=== PATIENT | male | born 1940 | race Caucasian/White ===

== ENCOUNTER 2019-12-01 02:08 | Inpatient (IN) | payer MEDICARE, OTHER ==
[2019-12-01] MEDS ORDERED: Norepinephrine 8 MG/0.9% NS 250 ML ONE (02:30)
[2019-12-01] MEDS ORDERED: fentaNYL Citrate/PF 2,000 MCG in Sodium Chloride 0.9% 60 ML IV SCH (02:35)
[2019-12-01] MEDS ORDERED: Ipratropium Bromide 2.5 ml Neb NEB PRN (02:51)
[2019-12-01] MEDS ORDERED: Albuterol Sulfate 2.5 mg/3 ml Neb NEB PRN (02:51)
[2019-12-01] MEDS ORDERED: Ventilator Sedation Protocol 1 EACH FS SCH (03:00)
[2019-12-01] MEDS ORDERED: Propofol 1,000 MG/100 ML VIAL IV PRN (03:03)
[2019-12-01] MEDS ORDERED: Fentanyl BOLUS 250 ML IVPB PRN (03:03)
[2019-12-01] MEDS ORDERED: DISCONTINUE PREVIOUS NARCOTIC PAIN MEDICATIONS AND BENZODIAZEPINES FS SCH (03:03)
[2019-12-01] MEDS ORDERED: Propofol BOLUS 1,000 MG/100 ML VIAL IV PRN (03:03)
[2019-12-01] MEDS ORDERED: Morphine 2 MG/ML SYRINGE SLOW IVP PRN (03:03)
[2019-12-01] MEDS ORDERED: Fentanyl 100 MCG/2 ML VIAL ONE (04:34)
[2019-12-01] MEDS ORDERED: Succinylcholine Chloride 20 MG/ML 10 ml SYRINGE FS ONE (04:36)
[2019-12-01] MEDS: cefTRIAXone\\ROCEPHIN 1 GM in Sodium Chloride 0.9% 100 ML IVPB SCH (05:42)
[2019-12-01] MEDS: methylPREDNISolone Sod Succ 40 MG VIAL IVP SCH ×3 (05:43→23:56)
[2019-12-01] MEDS: Azithromycin 500 MG in Sodium Chloride 0.9% 250 ML 250 ML IVPB SCH (05:43)
[2019-12-01] MEDS: Bacteriostatic Water 30 ML VIAL FS PRN (05:43)
[2019-12-01 06:17] LABS: INR-International Normal Ratio 3.4; Prothrombin Time 33.8 SEC (12.0-14.7)
[2019-12-01] MEDS: Sodium Chloride 0.9% 1,000 ML IV SCH ×2 (06:42→14:30)
[2019-12-01] MEDS ORDERED: Norepinephrine 8 MG/250 ML IVPB SCH (06:45)
[2019-12-01 06:56] LABS: Actual Bicarbonate (HCO3a) 30.5 mEq/L (22-28); CO2 Tension 59.3 mmHg (35.0-45.0); Calcium, Ionized 1.14 mmol/L (1.12-1.30); Carboxyhemoglobin (COHb) 1.5 gm% (0.0-3.0); Hemoglobin (Hb) 13.7 g/dL (14.0-18.0); O2 Tension (PaO2) 68.1 mmHg (> 70.0); Potassium - ABG Lab 3.72 mmol/L (3.70-5.30); pH, Arterial 7.33 (7.35-7.45)
[2019-12-01 07:15] LABS: ALV-art Gradient 71.675 (0-20); Puncture Site LRA
--- NOTE | 2019-12-01 07:33 | HP ---
CHIEF COMPLAINT: Shortness of breath. HISTORY OF PRESENT ILLNESS: Mr. Garcia is a 79-year-old male who is being transferred from [place] emergency room after he presented there with worsening shortness of breath. The patient has past medical history of COPD and DVT on warfarin. As per records, the patient became increasingly short of breath, using accessory muscles, was intubated, and mechanically ventilated. Also patient's blood pressure dropped and was placed on Levophed. On arrival to our emergency room, blood pressure was 160, systolic, Levophed was held then his blood pressure dropped down to less than 90. Currently, the patient was restarted again on Levophed. ED physician is placing central venous catheter. No further history can be obtained at this time since the patient is currently intubated and mechanically ventilated. PAST MEDICAL HISTORY: 1. Chronic obstructive pulmonary disease. 2. DVT. 3. Glucose intolerance. PAST SURGICAL HISTORY: 1. Back surgery. 2. Appendectomy. 3. Cholecystectomy. 4. Elbow surgery. 5. Hernia surgery. 6. IVC filter. ALLERGIES: NO KNOWN ALLERGIES. SOCIAL HISTORY: Unknown. The patient is currently intubated and sedated. HOME MEDICATIONS: Please see home medication reconciliation form for updated medications. REVIEW OF SYSTEMS: Unable to obtain. The patient is intubated, sedated, and mechanically ventilated. PHYSICAL EXAMINATION: GENERAL: The patient is intubated, sedated, mechanically ventilated. VITAL SIGNS: Blood pressure currently on Levophed is 120/87, pulse is 101, respiratory rate is 20, and pulse oximetry is 98%. HEAD AND NECK: Normocephalic and atraumatic. Intubated. Neck is supple. CHEST: Decreased air entry bilaterally with scattered wheeze. HEART: S1 and S2, regular. ABDOMEN: Soft. Bowel sounds present. NEURO: The patient is intubated, sedated, unable to assess. EXTREMITIES: No clubbing or cyanosis. GENITOURINARY: No flank tenderness. No suprapubic tenderness. MUSCULOSKELETAL: No apparent joint deformity. LABORATORY DATA: Sodium 144, potassium 4.6, BUN is 12, creatinine is 1, and glucose 122. WBC is 5.5, hemoglobin 14, and platelets 101. INR is 2.9. Chest x-ray reported no acute finding. ASSESSMENT: 1. Acute respiratory failure. 2. Chronic obstructive pulmonary disease with acute exacerbation. 3. History of deep venous thrombosis. 4. Anticoagulated on warfarin. 5. Hypotension. PLAN: 1. Admit to ICU. 2. Keep n.p.o. 3. Continue full ventilator support. 4. Consult Pulmonary for critical care management. 5. Continue bronchodilators scheduled and as needed. 6. IV steroids. 7. Empiric IV antibiotics. 8. GI prophylaxis. 9. DVT prophylaxis. The patient is on home warfarin, will get PT and INR. 10. Reconcile home medications. 11. Expected length of stay is two midnights or more. Job ID: [id number]
[2019-12-01] MEDS: Famotidine/PF 20 mg/2ml Vial SLOW IVP SCH ×2 (07:45→20:23)
--- NOTE | 2019-12-01 09:08 | RAD ---
PORTABLE CHEST: Date: 12/01/2019 COMPARISON: Exam obtained earlier at 0229 hours. FINDINGS/IMPRESSION: ET tube remains in place. The lung bases are not imaged on this current study. Visualized lung dillon show no focal infiltrate. No evidence of interval change. POS: [facility]
--- NOTE | 2019-12-01 09:27 | RAD ---
AP CHEST: Date: 12/01/2019 HISTORY: Intubation. FINDINGS: ET tube is normally positioned. The lungs appear clear of infiltrate. No evidence of vascular congest ion. Heart size normal. There are chronic lung parenchymal changes. IMPRESSION: No acute lung process. POS: [facility]
[2019-12-01] MEDS: Lorazepam 2 MG/ML VIAL SLOW IVP PRN (14:18)
[2019-12-01] MEDS ORDERED: guaiFENesin ER 600 MG TAB PO SCH (14:45)
[2019-12-01] MEDS ORDERED: Furosemide 20 MG/2 ML VIAL SLOW IVP SCH (14:45)
--- NOTE | 2019-12-01 15:30 | CON ---
DATE OF CONSULTATION: 12/01/2019 SERVICE: Pulmonary Medicine. REASON FOR CONSULTATION: COPD exacerbation. HISTORY OF PRESENT ILLNESS: The patient is a 79-year-old white male with past medical history significant for oxygen-dependent COPD. He is in his usual state of health until about 3 days prior to admission. He went to the emergency department and got a course of doxycycline and steroids. That being said, over the next 2 days, shortness of breath continued to get worse. He presented back to the emergency department at an outside hospital. He had such severe shortness of breath that he was electively intubated and transitioned here. On the mechanical ventilator, he has horrendous obstructive airflow limitation. He is awake and is cooperative. He is following some simple commands, though he is requiring some sedation to maintain comfort. PAST MEDICAL HISTORY: 1. Chronic hypoxic respiratory failure. 2. COPD. 3. History of DVT. 4. Glucose intolerance without current diabetes. PAST SURGICAL HISTORY: 1. Appendectomy. 2. Cholecystectomy. 3. Elbow surgery. 4. Herniorrhaphy. 5. IVC filter placement. 6. Back surgery. FAMILY HISTORY: Noncontributory. SOCIAL HISTORY: He has a greater than 01-[id number] history of smoking, but quit over 20 years ago. He had a 1-year relapse in 2009 after his first . His significant other denies significant alcohol or illicit drug use. 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 ALLERGIES: NO KNOWN DRUG ALLERGIES. MEDICATIONS: Lists of his inpatient medications were reviewed. Multiple updates were made at this time. REVIEW OF SYSTEMS: This cannot be obtained as the patient is currently intubated today. PHYSICAL EXAMINATION: VITAL SIGNS: Afebrile, pulse 102, blood pressure 104/67, respirations 14, saturation 97%, currently on 27% FiO2 delivered via the ventilator with a PEEP of 5. GENERAL: The patient is intubated and sedated. HEENT: Normocephalic and atraumatic. Sclerae white. Conjunctivae pink. Oral mucosa is moist without lesions. LUNGS: Reduced air entry with a prolonged expiratory phase. He is not moving enough air to appreciate adventitious sounds currently. HEART: Normal rate and regular. ABDOMEN: Soft, nontender, nondistended. Bowel sounds are positive. MUSCULOSKELETAL: No cyanosis or clubbing. There is minimal pitting in the bilateral lower extremities. NEUROLOGIC: Grossly nonfocal. LABORATORY DATA: INR 3.4. PH of 7.33, pCO2 of 59, PO2 of 68, corresponding to a saturation 93% while on 30% FiO2 at that time. IMAGING STUDIES: Chest x-ray demonstrates good placement of the endotracheal tube. No acute cardiopulmonary abnormality is otherwise identified. The lungs are significantly hyperinflated. No infiltrates or effusions are appreciated. There is an enteric catheter coursing midline below the level of the diaphragm. ASSESSMENT: 1. Acute on chronic hypoxic and hypercapnic respiratory failure. 2. Chronic obstructive pulmonary disease with acute exacerbation. 3. History of deep vein thrombosis, requiring anticoagulation. DISCUSSION AND PLAN: We will continue steroids, nebulized medications, and antibiotics. Because of the severity of his COPD exacerbation, I agree with discontinuation of the doxycycline in favor of the azithromycin and Rocephin combination, even though we do not have clear evidence of an evident infiltrate. Supportive care will be continued, and hopefully over the next 24 to 48 hours, he will have significant improvement in symptoms. I will add some Mucinex to his medications and give him a single dose of Lasix. Critical care time: 30 minutes. Job ID: [id number] MTDD
[2019-12-01] MEDS: guaiFENesin ER 600 MG TAB PO SCH (20:23)
[2019-12-02 05:09] LABS: Prothrombin Time 44.5 SEC (12.0-14.7)
[2019-12-02 05:15] LABS: INR-International Normal Ratio 4.8
[2019-12-02 05:19] LABS: Anion Gap 10 mmol/L (10-20); BUN (Urea Nitrogen) 29 mg/dL (8.4-25.7); Calc. Creatinine Clearance 64 mL/min (70-130); Calcium 8.8 mg/dL (7.8-10.44); Carbon Dioxide 35 mmol/L (23-31); Chloride 101 mmol/L (98-107); Estimated GFR-MDRD 52; Glucose 136 mg/dL (83-110); Potassium 4.2 mmol/L (3.5-5.1); Sodium 142 mmol/L (136-145)
[2019-12-02 05:28] LABS: Band 35 % (5-11); Hemoglobin 12.6 g/dL (14.0-18.0); Lymphocytes 4 % (21-51); MDiff Complete? YES; Mean Corpuscular HGB CONC 32.5 g/dL (32.0-36.0); Mean Corpuscular Hemoglobin 33.3 pg (27.0-31.0); Mean Platelet Volume 10.8 fL (7.4-10.4); Monocytes 4 % (0-10); Neutrophil 57 % (42-75); Platelet Count 97 thou/uL (130-400); Platelet Morphology Comment Appears Decreased; RBC Distribution Width 14.3 % (11.5-14.5); Red Blood Cell (RBC) Count 3.77 mill/uL (4.70-6.10); White Blood Cell (WBC) Count 12.4 thou/uL (4.8-10.8)
[2019-12-02] MEDS: Azithromycin 500 MG in Sodium Chloride 0.9% 250 ML 250 ML IVPB SCH (05:49)
[2019-12-02] MEDS: methylPREDNISolone Sod Succ 40 MG VIAL IVP SCH ×3 (05:49→18:00)
[2019-12-02] MEDS: cefTRIAXone\\ROCEPHIN 1 GM in Sodium Chloride 0.9% 100 ML IVPB SCH (05:49)
--- NOTE | 2019-12-02 07:56 | RAD ---
CHEST 1 VIEW: INDICATION: History of daily CCU examination for intubation. COMPARISON: Prior exam dated 12/01/2019. FINDINGS: The patient remains intubated with gastric catheter placement. Emphysematous change is similar-appea ring. No consolidation, pneumothorax, or pleural effusion is noted. Osseous structures are similar- appearing. IMPRESSION: Stable exam. POS: [facility]
[2019-12-02] MEDS: Famotidine/PF 20 mg/2ml Vial SLOW IVP SCH ×2 (10:22→19:48)
[2019-12-02] MEDS: guaiFENesin ER 600 MG TAB PO SCH ×2 (10:22→19:48)
[2019-12-02] MEDS ORDERED: Sodium Chloride 0.45% 1,000 ML IV SCH (16:45)
--- NOTE | 2019-12-02 17:09 | PRG ---
DATE OF SERVICE: 12/02/2019 SERVICE: Pulmonary Medicine. INTERVAL HISTORY: The patient is doing great from a respiratory standpoint. Breathing comfortably. No complaints. He is on a spontaneous breathing trial and he is doing quite well, but over the course of 1 hour trial, shallow breathing index went from 10 to about 35. He has very significant obstructive airflow limitation. He cannot provide much in the way of interval history because he is currently intubated and sedated. PHYSICAL EXAMINATION: VITAL SIGNS: Afebrile, pulse 91, blood pressure 103/72, respirations 17, saturation 94%, currently on 25% FiO2 with a PEEP of 5. GENERAL: The patient is intubated and sedated. HEENT: Normocephalic and atraumatic. Sclerae white. Conjunctivae pink. Oral mucosa is moist without lesions. LUNGS: Wonderful air entry. There is prolonged expiratory phase with wheezing present. Rhonchi are noted, but no crackles. HEART: Normal rate and regular. ABDOMEN: Soft, nontender, nondistended. Bowel sounds are positive. MUSCULOSKELETAL: No cyanosis or clubbing. There is no pitting in bilateral lower extremities. NEUROLOGIC: Grossly nonfocal. LABORATORY DATA: WBC 12.4, hemoglobin 12.6, platelets 97,000. Neutrophils are 57% on top of 35% bands. INR 4.8 and gently uptrending. PH 7.33, pCO2 of 59, PO2 of 68. Creatinine 1.34. Basic metabolic profile is otherwise unremarkable. IMAGING STUDIES: Chest x-ray demonstrates stable findings without acute changes. ASSESSMENT: 1. Acute on chronic hypoxic and hypercapnic respiratory failure. 2. Chronic obstructive pulmonary disease with acute exacerbation. 3. History of deep vein thrombosis, requiring anticoagulation. DISCUSSION AND PLAN: His INR will be held. We will continue with supportive care including steroids, nebulized medications, and antibiotics. His obstructive lung disease is improving a little bit. I believe that within the next 24 hours, the patient will be stable for extubation. We could likely do it today, but the severity of his obstructive airflow limitation, and deteriorating shallow breathing index on a spontaneous breathing trial suggest that we could wait another day unless he looks absolutely fantastic. CRITICAL CARE TIME: 30 minutes. Job ID: [id number] MTDD
[2019-12-02] MEDS: Lorazepam 2 MG/ML VIAL SLOW IVP PRN (18:06)
[2019-12-02] MEDS ORDERED: Furosemide 40 MG/4 ML VIAL SLOW IVP SCH (19:15)
--- NOTE | 2019-12-02 22:57 | PDOC.HOSPP ---
- Subjective Encounter Date: 12/02/19 Subjective: Intubated. - Objective Vital Signs & Weight: Vital Signs (12 hours) Temp Pulse Resp BP Pulse Ox 12/02/19 22:00 17 12/02/19 21:55 97 108/74 12/02/19 20:00 14 100 12/02/19 19:00 98.3 F 12/02/19 18:34 116 H 96/65 12/02/19 18:00 22 H 12/02/19 16:00 98.8 F 12 12/02/19 15:06 91 17 93 L 12/02/19 15:04 98 103/72 12/02/19 14:00 8 L 12/02/19 12:00 98.9 F 15 12/02/19 11:15 89 118/76 Weight Admit Weight 211 lb 6.773 oz Weight 215 lb 0.341 oz Most Recent Monitor Data Heart Rate from ECG 97 NIBP 106/72 NIBP BP-Mean 83 Respiration from ECG 17 SpO2 98 I&O: 12/01/19 12/02/19 12/03/19 06:59 06:59 06:59 Intake Total 27.4 1012.5 732.9 Output Total 908 951 4771 Balance -797.6 247.5 -554.1 Result Diagrams: 12/02/19 04:40 12/02/19 04:40 Hospitalist ROS - Medication Medications: Active Medications Generic Name Dose Route Start Last Admin Trade Name Freq PRN Reason Stop Dose Admin Albuterol/Ipratropium 3 ml 12/01/19 02:51 12/02/19 15:06 Duoneb NEB 3 ml Q4H PRN Administration SOB &/or Wheezing Famotidine 20 mg 12/01/19 09:00 12/02/19 19:48 Pepcid SLOW IVP 20 mg BID EDDIE Administration Guaifenesin 600 mg 12/01/19 21:00 12/02/19 19:48 Mucinex PO 600 mg Q12HR EDDIE Administration Fentanyl Citrate 2,000 mcg/ 100 mls @ 0 mls/hr 12/01/19 02:35 12/02/19 03:18 Sodium Chloride IV 12/31/19 02:35 100 mls INF EDDIE Administration Protocol Per Protocol Azithromycin 500 mg/ Sodium 250 mls @ 250 mls/hr 12/01/19 06:30 12/02/19 05: 49 Chloride IVPB 250 mls Q24HR EDDIE Administration Ceftriaxone Sodium 1 gm/ 100 mls @ 200 mls/hr 12/01/19 06:00 12/02/19 05:49 Sodium Chloride IVPB 100 mls Q24HR EDDIE Administration Sodium Chloride 1,000 mls @ 0 mls/hr 12/02/19 16:45 12/02/19 17:58 1/2 Normal Saline IV 1,000 mls .Q0M EDDIE Administration KVO Lorazepam 2 mg 12/01/19 03:03 12/02/19 18:06 Ativan SLOW IVP 12/31/19 03:03 2 mg Q1H PRN Administration Breakthrough agitation Methylprednisolone Sodium Succinate 40 mg 12/01/19 06:00 12/02/19 18:00 Solu-Medrol IVP 40 mg Q6HR EDDIE Administration Morphine Sulfate 2 mg 12/01/19 03:03 12/01/19 20:22 Morphine SLOW IVP 12/31/19 03:03 2 mg Q1H PRN Administration BREAKTHROUGH PAIN/Agitation Propofol 1,000 mg 12/01/19 03:03 12/01/19 11:34 Diprivan IV 12/31/19 03:03 1,000 mg INF PRN Administration TO ACHIEVE GOAL RASS Protocol Sodium Chloride 10 ml 12/01/19 09:00 12/02/19 19:49 Flush - Normal Saline IVF 10 ml Q12HR EDDIE Administration Sterile Water 1 ml 12/01/19 03:08 12/01/19 05:43 Bacteriostatic Water FS 1 ml PRN PRN Administration RECONSTITUTION - Exam General Appearance: NAD, awake alert Heart: RRR, no murmur, no gallops, no rubs, normal peripheral pulses Respiratory: CTAB, no wheezes, no rales, no ronchi, normal chest expansion, no tachypnea, normal percussion Gastrointestinal: soft, non-tender, non-distended, normal bowel sounds, no palpable masses, no hepatomegaly, no splenomegaly, no bruit Extremities: no cyanosis, no clubbing, no edema Skin: normal turgor Musculoskeletal: generalized weakness Hosp A/P (1) Acute respiratory failure with hypercapnia Code(s): J96.02 - ACUTE RESPIRATORY FAILURE WITH HYPERCAPNIA Status: Acute (2) COPD exacerbation Code(s): J44.1 - CHRONIC OBSTRUCTIVE PULMONARY DISEASE W (ACUTE) EXACERBATION Status: Acute (3) Hypotension Status: Acute (4) Supratherapeutic INR Code(s): R79.1 - ABNORMAL COAGULATION PROFILE Status: Acute (5) AXEL (acute kidney injury) Code(s): N17.9 - ACUTE KIDNEY FAILURE, UNSPECIFIED Status: Acute - Plan Followed by Pulm. Still has prolonged expiratory phase. Holding anticoagulation. BP ok.
[2019-12-03] MEDS: methylPREDNISolone Sod Succ 40 MG VIAL IVP SCH ×5 (00:02→22:47)
[2019-12-03 04:47] LABS: Anion Gap 9 mmol/L (10-20); BUN (Urea Nitrogen) 36 mg/dL (8.4-25.7); Calc. Creatinine Clearance 65 mL/min (70-130); Calcium 8.8 mg/dL (7.8-10.44); Carbon Dioxide 37 mmol/L (23-31); Chloride 99 mmol/L (98-107); Estimated GFR-MDRD 53; Glucose 160 mg/dL (83-110); Potassium 3.9 mmol/L (3.5-5.1); Sodium 141 mmol/L (136-145)
[2019-12-03 05:03] LABS: Band 25 % (5-11); Hemoglobin 12.1 g/dL (14.0-18.0); Lymphocytes 5 % (21-51); MDiff Complete? YES; Mean Corpuscular HGB CONC 31.2 g/dL (32.0-36.0); Mean Platelet Volume 10.8 fL (7.4-10.4); Monocytes 5 % (0-10); Neutrophil 65 % (42-75); Platelet Count 75 thou/uL (130-400); Platelet Morphology Comment Appears Decreased; RBC Distribution Width 14.1 % (11.5-14.5); Red Blood Cell (RBC) Count 3.77 mill/uL (4.70-6.10)
[2019-12-03 05:14] LABS: Prothrombin Time 42.3 SEC (12.0-14.7)
[2019-12-03 05:16] LABS: INR-International Normal Ratio 4.5
[2019-12-03] MEDS: Azithromycin 500 MG in Sodium Chloride 0.9% 250 ML 250 ML IVPB SCH (05:20)
[2019-12-03] MEDS: cefTRIAXone\\ROCEPHIN 1 GM in Sodium Chloride 0.9% 100 ML IVPB SCH (05:20)
[2019-12-03] MEDS: guaiFENesin ER 600 MG TAB PO SCH ×2 (09:40→19:42)
[2019-12-03] MEDS: Famotidine/PF 20 mg/2ml Vial SLOW IVP SCH (09:47)
--- NOTE | 2019-12-03 18:58 | PRG ---
DATE OF SERVICE: 12/03/2019 SERVICE: Pulmonary Medicine. INTERVAL HISTORY: The patient is doing fine from respiratory standpoint. Breathing comfortably. No complaints of chest discomfort. There has been no complaints of fevers, chills, cough, sputum production, nausea, or vomiting. Yesterday, late into the afternoon, he started developing increasing difficulty with breathing. Support on the ventilator was increased. He required being bagged for just a short period of time, but overnight, he settled back down again. Otherwise, there were no events. This morning, the patient is once again on spontaneous breathing trial, and he appears to be quite comfortable, and he is gesturing to us that we should get on with the extubation. PHYSICAL EXAMINATION: VITAL SIGNS: Afebrile, pulse 100, blood pressure 146/87, respirations 19, saturation 92% on 27% FiO2 and a PEEP of 5. GENERAL: The patient is intubated and sedated. HEENT: Normocephalic and atraumatic. Sclerae are white. Conjunctivae are pink. Oral mucosa is moist without lesions. LUNGS: Good air entry bilaterally. No prolonged expiratory phase or wheezing is appreciated. HEART: Normal rate, regular. ABDOMEN: Soft, nontender, and nondistended. Bowel sounds are positive. MUSCULOSKELETAL: No cyanosis or clubbing. No pitting in bilateral lower extremities. NEUROLOGIC: Grossly nonfocal. LABORATORY DATA: WBC 8.0, hemoglobin 12.1, platelets are 75,000 and gently downtrending. Band count 25%. Creatinine 1.31. ASSESSMENT: 1. Pmpoy-pe-qrpwxyn hypoxic and hypercapnic respiratory failure, improving. 2. Chronic obstructive pulmonary disease with acute exacerbation. 3. History of deep venous thrombosis, requiring anticoagulation. DISCUSSION AND PLAN: The patient is doing great from respiratory standpoint. After a spontaneous breathing trial is performed today, if he still meets criteria, extubation will be considered. We will continue supportive care including antibiotics, nebulized medications, and steroids. CRITICAL CARE TIME: 30 minutes. Job ID: [id number]
[2019-12-03] MEDS: Sodium Chloride 0.45% 1,000 ML IV SCH (19:00)
[2019-12-03] MEDS: Famotidine 20 MG TAB PO SCH (19:42)
--- NOTE | 2019-12-03 21:58 | PDOC.HOSPP ---
- Subjective Encounter Date: 12/03/19 Subjective: Extubated. Says he feels like he is doing ok. - Objective Vital Signs & Weight: Vital Signs (12 hours) Temp Pulse Ox 12/03/19 20:00 98.5 F 98 12/03/19 16:00 98.0 F 12/03/19 12:00 98.5 F 97 Weight Admit Weight 211 lb 6.773 oz Weight 212 lb 11.937 oz Most Recent Monitor Data Heart Rate from ECG 86 NIBP 146/92 NIBP BP-Mean 110 Respiration from ECG 19 SpO2 99 I&O: 12/02/19 12/03/19 12/04/19 06:59 06:59 06:59 Intake Total 1012.5 1011.9 214 Output Total 765 1792 728 Balance 247.5 -780.1 -514 Result Diagrams: 12/03/19 04:20 12/03/19 04:20 Hospitalist ROS - Medication Medications: Active Medications Generic Name Dose Route Start Last Admin Trade Name Freq PRN Reason Stop Dose Admin Albuterol/Ipratropium 3 ml 12/01/19 02:51 12/03/19 06:54 Duoneb NEB 3 ml Q4H PRN Administration SOB &/or Wheezing Famotidine 20 mg 12/03/19 21:00 12/03/19 19:42 Pepcid PO 20 mg BID EDDIE Administration Guaifenesin 600 mg 12/01/19 21:00 12/03/19 19:42 Mucinex PO 600 mg Q12HR EDDIE Administration Azithromycin 500 mg/ Sodium 250 mls @ 250 mls/hr 12/01/19 06:30 12/03/19 05: 20 Chloride IVPB 250 mls Q24HR EDDIE Administration Ceftriaxone Sodium 1 gm/ 100 mls @ 200 mls/hr 12/01/19 06:00 12/03/19 05:20 Sodium Chloride IVPB 100 mls Q24HR EDDIE Administration Sodium Chloride 1,000 mls @ 50 mls/hr 12/03/19 18:41 12/03/19 19:00 1/2 Normal Saline IV 1,000 mls .Q20H EDDIE Administration Methylprednisolone Sodium Succinate 40 mg 12/01/19 06:00 12/03/19 17:47 Solu-Medrol IVP 40 mg Q6HR EDDIE Administration Sodium Chloride 10 ml 12/01/19 09:00 12/03/19 19:42 Flush - Normal Saline IVF 10 ml Q12HR EDDIE Administration Sterile Water 1 ml 12/01/19 03:08 12/01/19 05:43 Bacteriostatic Water FS 1 ml PRN PRN Administration RECONSTITUTION - Exam General Appearance: NAD, awake alert Heart: RRR, no murmur, no gallops, no rubs, normal peripheral pulses Respiratory: no wheezes, no tachypnea, rales Respiratory - other findings: Wet cough. Gastrointestinal: soft, non-tender, non-distended, normal bowel sounds, no palpable masses, no hepatomegaly, no splenomegaly, no bruit Extremities: no cyanosis, no clubbing, no edema Skin: normal turgor Musculoskeletal: generalized weakness Hosp A/P (1) Acute respiratory failure with hypercapnia Code(s): J96.02 - ACUTE RESPIRATORY FAILURE WITH HYPERCAPNIA Status: Acute (2) COPD exacerbation Code(s): J44.1 - CHRONIC OBSTRUCTIVE PULMONARY DISEASE W (ACUTE) EXACERBATION Status: Acute (3) Hypotension Status: Acute (4) Supratherapeutic INR Code(s): R79.1 - ABNORMAL COAGULATION PROFILE Status: Acute (5) AXEL (acute kidney injury) Code(s): N17.9 - ACUTE KIDNEY FAILURE, UNSPECIFIED Status: Acute - Plan Followed by Pulm Holding anticoagulation. Tolerating extubation well. Antibiotics, steroids, nebs.
[2019-12-03] MEDS: Bacteriostatic Water 30 ML VIAL FS PRN (22:47)
[2019-12-04] MEDS: cefTRIAXone\\ROCEPHIN 1 GM in Sodium Chloride 0.9% 100 ML IVPB SCH (05:07)
[2019-12-04] MEDS: methylPREDNISolone Sod Succ 40 MG VIAL IVP SCH ×3 (05:08→17:12)
[2019-12-04] MEDS: Bacteriostatic Water 30 ML VIAL FS PRN (05:08)
[2019-12-04 05:36] LABS: Hemoglobin 12.6 g/dL (14.0-18.0); Mean Corpuscular HGB CONC 31.6 g/dL (32.0-36.0); Mean Corpuscular Hemoglobin 32.7 pg (27.0-31.0); Mean Platelet Volume 11.2 fL (7.4-10.4); Platelet Count 68 thou/uL (130-400); RBC Distribution Width 13.8 % (11.5-14.5); Red Blood Cell (RBC) Count 3.87 mill/uL (4.70-6.10); White Blood Cell (WBC) Count 7.6 thou/uL (4.8-10.8)
[2019-12-04 05:45] LABS: BUN (Urea Nitrogen) 30 mg/dL (8.4-25.7); Calc. Creatinine Clearance 94 mL/min (70-130); Calcium 8.8 mg/dL (7.8-10.44); Estimated GFR-MDRD 82; Glucose 126 mg/dL (83-110)
[2019-12-04] MEDS: Azithromycin 500 MG in Sodium Chloride 0.9% 250 ML 250 ML IVPB SCH (05:50)
[2019-12-04 05:54] LABS: Anion Gap 13 mmol/L (10-20); Carbon Dioxide 36 mmol/L (23-31); Chloride 101 mmol/L (98-107); Potassium 4.6 mmol/L (3.5-5.1); Sodium 145 mmol/L (136-145)
[2019-12-04 06:10] LABS: Band 36 % (5-11); Lymphocytes 2 % (21-51); MDiff Complete? YES; Macrocytosis SLIGHT = 6-15 cells (100X) (0-5/hpf); Monocytes 4 % (0-10); Neutrophil 58 % (42-75); Platelet Morphology Comment Appears Decreased
[2019-12-04] MEDS: Famotidine 20 MG TAB PO SCH ×2 (08:51→20:11)
[2019-12-04] MEDS: guaiFENesin ER 600 MG TAB PO SCH ×2 (08:52→20:11)
--- NOTE | 2019-12-04 15:51 | PDOC.HOSPP ---
- Subjective Encounter Date: 12/04/19 Subjective: Doing a little better. Still has some cough. Stays somnolent throughout the day , but will awaken. Denies other complaints. - Objective Vital Signs & Weight: Vital Signs (12 hours) Temp Pulse Ox 12/04/19 12:00 97.5 F L 12/04/19 08:00 98.8 F 99 12/04/19 07:06 100 12/04/19 04:00 98.0 F Weight Admit Weight 211 lb 6.773 oz Weight 207 lb 3.752 oz Most Recent Monitor Data Heart Rate from ECG 113 NIBP 148/99 NIBP BP-Mean 115 Respiration from ECG 25 SpO2 93 I&O: 12/03/19 12/04/19 12/05/19 06:59 06:59 06:59 Intake Total 1011.9 1057 20 Output Total 1792 1253 522 Balance -780.1 -196 -502 Result Diagrams: 12/04/19 03:49 12/04/19 03:49 Hospitalist ROS - Medication Medications: Active Medications Generic Name Dose Route Start Last Admin Trade Name Freq PRN Reason Stop Dose Admin Albuterol/Ipratropium 3 ml 12/01/19 02:51 12/03/19 06:54 Duoneb NEB 3 ml Q4H PRN Administration SOB &/or Wheezing Famotidine 20 mg 12/03/19 21:00 12/04/19 08:51 Pepcid PO 20 mg BID EDDIE Administration Guaifenesin 600 mg 12/01/19 21:00 12/04/19 08:52 Mucinex PO 600 mg Q12HR EDDIE Administration Azithromycin 500 mg/ Sodium 250 mls @ 250 mls/hr 12/01/19 06:30 12/04/19 05: 50 Chloride IVPB 250 mls Q24HR EDDIE Administration Ceftriaxone Sodium 1 gm/ 100 mls @ 200 mls/hr 12/01/19 06:00 12/04/19 05:07 Sodium Chloride IVPB 100 mls Q24HR EDDIE Administration Sodium Chloride 1,000 mls @ 0 mls/hr 12/03/19 18:41 12/03/19 19:00 1/2 Normal Saline IV 1,000 mls .Q0M EDDIE Administration KVO Methylprednisolone Sodium Succinate 40 mg 12/01/19 06:00 12/04/19 12:46 Solu-Medrol IVP 40 mg Q6HR EDDIE Administration Sodium Chloride 10 ml 12/01/19 09:00 12/04/19 08:52 Flush - Normal Saline IVF 10 ml Q12HR EDDIE Administration Sterile Water 1 ml 12/01/19 03:08 12/04/19 05:08 Bacteriostatic Water FS 1 ml PRN PRN Administration RECONSTITUTION - Exam General Appearance: NAD, awake alert Heart: RRR, no murmur, no gallops, no rubs, normal peripheral pulses Respiratory: rales, rhonchi Gastrointestinal: soft, non-tender, non-distended, normal bowel sounds, no palpable masses, no hepatomegaly, no splenomegaly, no bruit Extremities: no cyanosis, no clubbing, no edema Skin: normal turgor Musculoskeletal: generalized weakness Psychiatric: lethargic Hosp A/P (1) Acute respiratory failure with hypercapnia Code(s): J96.02 - ACUTE RESPIRATORY FAILURE WITH HYPERCAPNIA Status: Acute (2) COPD exacerbation Code(s): J44.1 - CHRONIC OBSTRUCTIVE PULMONARY DISEASE W (ACUTE) EXACERBATION Status: Acute (3) Hypotension Status: Acute (4) Supratherapeutic INR Code(s): R79.1 - ABNORMAL COAGULATION PROFILE Status: Acute (5) AXEL (acute kidney injury) Code(s): N17.9 - ACUTE KIDNEY FAILURE, UNSPECIFIED Status: Resolved (6) Dysphagia Code(s): R13.10 - DYSPHAGIA, UNSPECIFIED Status: Acute (7) Hx of deep venous thrombosis Code(s): Z86.718 - PERSONAL HISTORY OF OTHER VENOUS THROMBOSIS AND EMBOLISM Status: Acute - Plan Followed by Pulm Tolerating extubation well. Antibiotics, steroids, nebs. Still has some secretions in the chest that he cannot effectively cough out because of generalized weakness. Encouraged continued cough. Failed swallow. Will likely improve with time and gaining overall strength. Holding anticoagulation. Checking INR daily. Explained to the patient's the likelihood that he will need some rehab at the time of the discharge.
--- NOTE | 2019-12-04 18:44 | PRG ---
DATE OF SERVICE: 12/04/2019 SERVICE: Pulmonary Medicine. INTERVAL HISTORY: The patient is doing great from a respiratory standpoint. Tolerated extubation just fine a couple of days ago. Denies any current chest discomfort, nausea, vomiting. Otherwise, there has been no interval change to his condition. Nursing reports no overnight events. PHYSICAL EXAMINATION: VITAL SIGNS: Afebrile, pulse 88, blood pressure 147/98, respirations 19, and saturation 100% on room air. GENERAL: The patient is awake and alert, in no apparent distress. HEENT: Normocephalic and atraumatic. Sclerae white. Conjunctivae pink. Oral mucosa is moist without lesions. LUNGS: Good air entry bilaterally. There is a slightly prolonged expiratory phase. No wheezing is present. HEART: Normal rate, regular. ABDOMEN: Soft, nontender, and nondistended. Bowel sounds are positive. MUSCULOSKELETAL: No cyanosis or clubbing. There is no pitting in the bilateral lower extremities. NEUROLOGIC: Grossly nonfocal. LABORATORY DATA: WBC 7.6, hemoglobin 12.6, and platelets 68,000 and gently downtrending. Band count is 36% and up trending on top of 58% neutrophils. INR 4.5. Bicarb 36. Basic metabolic profile is otherwise unremarkable. Sodium is up trending to 145. ASSESSMENT: 1. Acute on chronic hypoxic and hypercapnic respiratory failure, improving. 2. Chronic obstructive pulmonary disease with acute exacerbation. 3. History of deep venous thrombosis, requiring anticoagulation. DISCUSSION AND PLAN: The patient is doing really quite good status post extubation. We will continue supportive care including antibiotics, nebulized medications, and steroids. He can be transitioned to the floor. I will give him a laboratory holiday tomorrow morning. We will also interrupt Lasix for a day as he is likely going to develop hypernatremia. Steroid can be switched over to a p.o. medication. Job ID: [id number]
[2019-12-04] MEDS: Sodium Chloride 0.45% 1,000 ML IV SCH (20:11)
[2019-12-05] MEDS: cefTRIAXone\\ROCEPHIN 1 GM in Sodium Chloride 0.9% 100 ML IVPB SCH (05:12)
[2019-12-05] MEDS: Azithromycin 500 MG in Sodium Chloride 0.9% 250 ML 250 ML IVPB SCH (06:30)
[2019-12-05] MEDS ORDERED: Nitroglycerin 0.4 MG TAB (25 Tab Bottle) SL PRN ×2 (07:38→07:39)
[2019-12-05] MEDS ORDERED: Aspirin 325 MG TAB PO SCH (07:45)
--- NOTE | 2019-12-05 09:41 | PRG ---
DATE OF SERVICE: 12/05/2019 SUBJECTIVE: The patient is seen and examined at the bedside. He complains about chest pain for the last 20 to 30 minutes. OBJECTIVE: VITAL SIGNS: Blood pressure is 159/117, pulse is 83, respiratory rate is 10, and O2 saturation is 100% on O2. HEENT: His oral mucosa is dry. NECK: Supple. LUNGS: Expiratory wheezing and crackles at the both bases. HEART: S1 and S2. Tachycardic. No S3. No S4. ABDOMEN: Soft, nontender, and nondistended. EXTREMITIES: No clubbing, cyanosis, or edema. NEUROLOGIC: He follows my commands. He moves his all 4 extremities. There are no any motor deficits. LABORATORY DATA: Labs showed no labs this morning. Microbiology, none. IMPRESSION: 1. Acute respiratory failure with hypercapnia. 2. Chronic obstructive pulmonary disease exacerbation. 3. Hypotension, resolved. 4. Chest pain. 5. Supratherapeutic INR. 6. Acute kidney injury. 7. Dysphagia. 8. History of deep venous thrombosis. PLAN: Cardiac enzymes with troponin x3. This morning, EKG, nitro p.r.n. sublingual. Continue IV antibiotics. Continue p.o. steroids. He is on prednisone. Continue nebulizers and we will follow up on this chest pain issue as soon as diagnostic tests are done. His INR was elevated yesterday, so most likely today is going to be elevated too. Job ID: [id number]
[2019-12-05] MEDS: Famotidine 20 MG TAB PO SCH ×2 (09:47→20:32)
[2019-12-05] MEDS: predniSONE 20 MG TAB PO SCH (09:48)
[2019-12-05] MEDS: guaiFENesin ER 600 MG TAB PO SCH ×2 (09:48→20:32)
[2019-12-05 09:54] LABS: Troponin I Less than 0.010 ng/mL (< 0.028)
[2019-12-05 14:07] LABS: Troponin I Less than 0.010 ng/mL (< 0.028)
--- NOTE | 2019-12-05 14:34 | PRG ---
DATE OF SERVICE: 12/05/2019 SERVICE: Pulmonary Medicine. INTERVAL HISTORY: The patient is doing great from respiratory standpoint. Denies any current chest discomfort, nausea, vomiting, fevers, or chills. Otherwise, there has been no interval change to his condition. He worked with physical therapy today and is exhausted. His swallow is deplorable, so speech pathology has him without food for the time being. He is little upset about this as his appetite is quite robust. PHYSICAL EXAMINATION: VITAL SIGNS: Afebrile; pulse 97; blood pressure 157/99; respirations 31; and saturation 96%, currently on 2 L nasal cannula. GENERAL: The patient is awake and alert, in no apparent distress. LUNGS: Reduced air entry. There is a prolonged expiratory phase with rhonchi present. Wheezing is noted on forced exhalation. No crackles. HEART: Normal rate, regular. ABDOMEN: Soft, nontender, and nondistended. Bowel sounds are positive. MUSCULOSKELETAL: No cyanosis or clubbing. There is trace pitting in bilateral lower extremities. NEUROLOGIC: Grossly nonfocal. LABORATORY DATA: Troponin is negative x2. ASSESSMENT: 1. Acute on chronic hypoxic and hypercapnic respiratory failure, resolving. 2. Chronic obstructive pulmonary disease with acute exacerbation. 3. History of deep vein thrombosis, requiring anticoagulation. DISCUSSION AND PLAN: We will continue supportive care including steroids, nebulized medications, and antibiotics. The patient got a dose of nitroglycerin, which resolved an episode of chest discomfort. As such, Cardiology opinion is currently pending. His EKG did not have any acute ST changes, and first two troponins have been unremarkable. He can be transitioned to the telemetry unit. Repeat laboratories will be performed tomorrow morning. Pulmonary will follow for the time being. Job ID: [id number]
[2019-12-05 17:51] LABS: Troponin I 0.031 ng/mL (< 0.028)
[2019-12-06 04:55] LABS: #Monocytes 0.9 thou/uL (0.11-0.59); #Neutrophils 6.1 thou/uL (1.40-6.50); %Basophils 0.4 % (0.0-1.0); %Eosinophils 0.3 % (0.0-10.0); %Lymphocytes 12.2 % (21.0-51.0); %Neutrophils 76.1 % (42.0-75.0); Hemoglobin 12.8 g/dL (14.0-18.0); Mean Corpuscular HGB CONC 32.1 g/dL (32.0-36.0); Mean Corpuscular Hemoglobin 32.7 pg (27.0-31.0); Mean Platelet Volume 10.1 fL (7.4-10.4); Platelet Count 92 thou/uL (130-400); RBC Distribution Width 13.8 % (11.5-14.5); Red Blood Cell (RBC) Count 3.93 mill/uL (4.70-6.10); White Blood Cell (WBC) Count 8.1 thou/uL (4.8-10.8)
[2019-12-06 04:56] LABS: INR-International Normal Ratio 1.8; Prothrombin Time 20.8 SEC (12.0-14.7)
[2019-12-06] MEDS: cefTRIAXone\\ROCEPHIN 1 GM in Sodium Chloride 0.9% 100 ML IVPB SCH (05:12)
[2019-12-06 05:16] LABS: BUN (Urea Nitrogen) 26 mg/dL (8.4-25.7); Calc. Creatinine Clearance 100 mL/min (70-130); Calcium 8.5 mg/dL (7.8-10.44); Estimated GFR-MDRD Greater than 90; Glucose 79 mg/dL (83-110)
[2019-12-06 05:25] LABS: Anion Gap 12 mmol/L (10-20); Carbon Dioxide 35 mmol/L (23-31); Chloride 100 mmol/L (98-107); Potassium 4.1 mmol/L (3.5-5.1); Sodium 143 mmol/L (136-145)
[2019-12-06] MEDS: Azithromycin 500 MG in Sodium Chloride 0.9% 250 ML 250 ML IVPB SCH (06:02)
[2019-12-06] MEDS: predniSONE 20 MG TAB PO SCH (07:55)
[2019-12-06] MEDS: guaiFENesin ER 600 MG TAB PO SCH ×2 (07:56→21:08)
[2019-12-06] MEDS: Famotidine 20 MG TAB PO SCH ×2 (07:56→21:08)
--- NOTE | 2019-12-06 08:50 | PRG ---
DATE OF SERVICE: 12/06/2019 SUBJECTIVE: The patient is seen and examined at the bedside. He feels significantly better. He does not have any chest pain anymore. OBJECTIVE: VITAL SIGNS: Blood pressure is 133/81, pulse is 105, respiratory rate is 22, O2 saturation is 96% on oxygen 3 L by nasal cannula. HEENT: His head is atraumatic and normocephalic. Eyes are PERRLA. Sclerae are nonicteric. Oral mucosa is moist. NECK: Supple, obese. LUNGS: Bilateral rales at both bases present with few wheezes bilaterally. HEART: S1 and S2 normal. Somewhat tachycardic. No S3. No S4. ABDOMEN: Soft, mildly distended. Bowel sounds are present. EXTREMITIES: No clubbing, cyanosis, or edema. NEUROLOGICAL: He follows my commands. He moves his all 4 extremities. There is no any motor or sensory deficits. LABORATORY DATA: Labs showed white count of 8.1, hemoglobin 12.8, hematocrit 40.0, platelet count is 292,000. INR is 1.8, Sodium of 143, potassium 4.1, chloride 100, CO2 of 35, BUN 26, creatinine 0.82, glucose 79, calcium is 8.5; three sets of troponin I 0.01, 0.010, and 0.031. IMPRESSION: 1. Acute respiratory failure with hypercapnia, improved. 2. Chronic obstructive pulmonary disease exacerbation, improved. 3. Chest pain, resolved. 4. Hypotension, resolved. 5. Supratherapeutic INR, resolved. 6. Acute kidney injury, improved. 7. History of deep venous thrombosis. PLAN: Restart his Coumadin since his INR is back to normal range with history of DVT. We will obtain echocardiogram to keep him on an 81 mg of aspirin daily. He will continue his antibiotics, steroids, and nebulizers as before. I will get Cardiology consultation regarding his chest pain and will continue INRs and PT daily. He can be transferred to telemetry today. Job ID: [id number]
[2019-12-06] MEDS: Aspirin 81 mg Enteric Coated Tablet PO SCH (11:24)
[2019-12-06] MEDS ORDERED: Warfarin Sodium 10 MG TAB PO SCH (17:00)
[2019-12-06] MEDS ORDERED: Furosemide 40 MG/4 ML VIAL SLOW IVP SCH (17:15)
--- NOTE | 2019-12-06 17:31 | PRG ---
DATE OF SERVICE: 12/03/2019 SERVICE: Pulmonary Medicine. INTERVAL HISTORY: Over the last 48 hours, the patient went from being extubated to doing quite well. This morning, however, he has had increasing work of breathing and conversational dyspnea. He is able to get out of bed and sit in a chair for couple of hours this morning, but the task of getting back into bed was quite difficult. He is still trying to recover from that procedure. Otherwise, there has been no interval change to his condition. He continues to have rhonchorous breath sounds. Otherwise, nursing reports no events. PHYSICAL EXAMINATION: VITAL SIGNS: Afebrile, pulse 103, blood pressure 107/84, respirations 19, saturation 100%, currently on 2 L nasal cannula. GENERAL: The patient is awake and alert, in no apparent distress. LUNGS: Decent air entry. There is a prolonged expiratory phase with rhonchi and wheezing both present. Dependent crackles are minimal. HEART: Normal rate, regular. ABDOMEN: Soft, nontender, and nondistended. Bowel sounds are positive. MUSCULOSKELETAL: No cyanosis or clubbing. No pitting in the bilateral lower extremities. NEUROLOGIC: Grossly nonfocal. LABORATORY DATA: WBC 8.1, hemoglobin 12.8, platelets 92,000 and gently up trending. Basic metabolic profile is essentially unremarkable. Bicarb is stable at 36. Troponin is gently up trending to 0.031. ASSESSMENT: 1. Acute on chronic hypoxic and hypercapnic respiratory failure, resolved. 2. Chronic obstructive pulmonary disease with acute exacerbation. 3. History of deep venous thrombosis, requiring anticoagulation. 4. Recent chest pain with resolution following nitroglycerin under the tongue. DISCUSSION PLAN: 1. We will continue steroids, nebulized medications, and antibiotics. I will give him a one time dose of Lasix. BiPAP will be offered on an as-needed basis. We will schedule Mucinex twice daily. Additionally, the patient is having nasal symptoms. I will also schedule phenylephrine nasal spray for the next 3 days to see if we can keep the rhinitis away. He will need to remain in the ICU or transition to the IMCU instead of the telemetry unit given his increased respiratory difficulties. Job ID: [id number] [facility]
[2019-12-06] MEDS: Warfarin Sodium 10 MG TAB PO SCH (17:36)
--- NOTE | 2019-12-06 20:08 | CON ---
DATE OF CONSULTATION: 12/06/2019 REASON FOR CONSULTATION: Chest pain. HISTORY OF PRESENT ILLNESS: Mr. Garcia is a pleasant 79-year-old white gentleman, who comes to the hospital for shortness of breath. He was diagnosed with COPD exacerbation and hypercapnic hypoxic respiratory insufficiency. He was treated appropriately for this, eventually extubated and placed on BiPAP. Yesterday, he had an episode of chest pain, midsternal pressure that relieved with sublingual nitroglycerin. He had never had chest pain in the past. On my evaluation, he is chest pain free. His only issue is shortness of breath. He is wearing a BiPAP. He had to take it off to talk, but he became very tachypneic, being off the BiPAP, but not too hypoxic. He went down to about 95% only. PAST MEDICAL HISTORY: 1. COPD. 2. History of DVTs. 3. 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 4. Chronic hypoxic respiratory insufficiency. PAST SURGICAL HISTORY: 1. Appendectomy. 2. Cholecystectomy. 3. Elbow surgery. 4. Herniorrhaphy. 5. IVC filter. 6. Back surgery. SOCIAL HISTORY: He has a [id number] history of smoking. Quit 20 years ago. No alcohol or drugs. ALLERGIES: NO KNOWN DRUG ALLERGIES. OUTPATIENT MEDICATIONS: 1. Doxycycline. 2. Prednisone 60 mg a day. 3. Budesonide with formoterol. 4. Coumadin 10 mg a day. 5. DuoNeb. FAMILY HISTORY: Noncontributory. REVIEW OF SYSTEMS: 12-point review of systems was done and was all negative unless stated in the history of present illness. PHYSICAL EXAMINATION: VITAL SIGNS: Temperature 98.6, pulse 110, respiratory rate 26, satting 100% on 50% FiO2, blood pressure 130/92. GENERAL: Awake, alert, and oriented x3, in mild respiratory distress. HEENT: Normocephalic and atraumatic. NECK: Supple. LUNGS: Reduced breath sounds bilaterally. CARDIOVASCULAR: S1 and S2. Distant heart sounds. ABDOMEN: Soft. Positive bowel sounds. EXTREMITIES: No edema. SKIN: Warm and dry. LABORATORY DATA: Laboratory work was reviewed. CBC, coags, blood gas, and chemistries were reviewed. Troponin was negative x2 and the third was 0.031. ASSESSMENT: 1. Chest pain. 2. Chronic obstructive pulmonary disease exacerbation, improving. PLAN: 1. Certainly, he is at risk of coronary artery disease given his history of smoking. 2. No evidence of acute coronary syndrome at this time. We will repeat another troponin tomorrow morning. He is not having any more chest pain. 3. We will get an echocardiogram. 4. This is not a good time to do any risk stratification with stress testing or heart catheterization. 5. If his COPD is end-stage, he may not be a candidate for much other than just medical therapy. 6. Continue current regimen for now. 7. Further recommendations per results of echo and trending of troponins. Job ID: [id number]
[2019-12-07 04:08] LABS: INR-International Normal Ratio 1.2; Prothrombin Time 15.4 SEC (12.0-14.7)
[2019-12-07 04:20] LABS: BUN (Urea Nitrogen) 27 mg/dL (8.4-25.7); Calc. Creatinine Clearance 81 mL/min (70-130); Calcium 8.1 mg/dL (7.8-10.44); Estimated GFR-MDRD 72; Glucose 92 mg/dL (83-110)
[2019-12-07 04:30] LABS: Anion Gap 14 mmol/L (10-20); Carbon Dioxide 35 mmol/L (23-31); Chloride 100 mmol/L (98-107); Potassium 3.7 mmol/L (3.5-5.1); Sodium 145 mmol/L (136-145)
[2019-12-07 04:33] LABS: Band 1 % (5-11); Hemoglobin 12.5 g/dL (14.0-18.0); Hypochromia SLIGHT = 6-15 cells (100X) (0-5/hpf); Lymphocytes 11 % (21-51); MDiff Complete? YES; Mean Corpuscular HGB CONC 32.5 g/dL (32.0-36.0); Mean Corpuscular Hemoglobin 32.8 pg (27.0-31.0); Mean Platelet Volume 10.1 fL (7.4-10.4); Monocytes 4 % (0-10); Neutrophil 84 % (42-75); Platelet Count 95 thou/uL (130-400); Platelet Morphology Comment Appears Decreased; RBC Distribution Width 13.5 % (11.5-14.5); Red Blood Cell (RBC) Count 3.82 mill/uL (4.70-6.10); White Blood Cell (WBC) Count 8.1 thou/uL (4.8-10.8)
[2019-12-07] MEDS: Sodium Chloride 0.45% 1,000 ML IV SCH (05:13)
[2019-12-07] MEDS: Azithromycin 500 MG in Sodium Chloride 0.9% 250 ML 250 ML IVPB SCH (05:14)
[2019-12-07] MEDS: cefTRIAXone\\ROCEPHIN 1 GM in Sodium Chloride 0.9% 100 ML IVPB SCH (05:14)
[2019-12-07] MEDS: Aspirin 81 mg Enteric Coated Tablet PO SCH (09:41)
[2019-12-07] MEDS: Famotidine 20 MG TAB PO SCH ×2 (09:41→20:36)
[2019-12-07] MEDS: guaiFENesin ER 600 MG TAB PO SCH ×2 (09:41→20:36)
[2019-12-07] MEDS: predniSONE 20 MG TAB PO SCH (09:41)
[2019-12-07] MEDS ORDERED: Acetaminophen 500 MG TAB PO PRN (10:30)
--- NOTE | 2019-12-07 11:06 | PRG ---
DATE OF SERVICE: 12/07/2019 SUBJECTIVE: The patient is seen and examined at the bedside. He complained about some left forearm pain during his antibiotic infusion. OBJECTIVE: VITAL SIGNS: Blood pressure is 123/83, pulse is 99, respiratory rate is 20, O2 saturation is 100% on 3 L by nasal cannula. HEENT: His head is atraumatic and normocephalic. He has big bruise from the central line I believe on the right side of the neck. His eyes are PERRLA. Sclerae are nonicteric. LUNGS: Bilateral rales present in the mid and lower portions of both lungs. No wheezing. HEART: S1 and S2 normal. No S3. No S4. ABDOMEN: Soft, nontender. EXTREMITIES: No clubbing, cyanosis, or edema. NEUROLOGICAL: He follows my commands. He moves his all 4 extremities. There is no any motor deficits. LABORATORY DATA: Labs show white count of 8.1, hemoglobin of 12.5, hematocrit 38.6, platelet count is 95,000. INR is 1.2, PT 15.4. Sodium 145, potassium 3.7, chloride 100, CO2 of 35, BUN 27, creatinine 1.0. Troponin I 0.014. Calcium 8.1, and glucose is 92. IMPRESSION: 1. Acute respiratory failure with hypercapnia, improved. 2. Chronic obstructive pulmonary disease exacerbation, improved. 3. Chest pain, resolved. 4. Hypotension, resolved. 5. Supratherapeutic INR, resolved, back on Coumadin with INR down to 1.2 today. 6. Acute kidney injury, improved. 7. History of deep venous thrombosis. 8. Left forearm pain during antibiotic infusion. PLAN: The patient is started on Coumadin. His INR is down to 1.2. He will have additional 10 mg of Coumadin today. He is supposed to be off his Coumadin tomorrow. He might need additional dose of Coumadin tomorrow if his INR is still low. We are going to observe his left forearm pain he experienced during antibiotic infusion for possible problem. If it comes back, we will have to probably do ultrasounds to rule out any DVT, because the midline is working fine. At this point, he will continue his prednisone as per assistant engineer order. He will continue his nebulizers and PT. Dr. Nava is planning to re-evaluate him today and probably wait with his cardiac evaluation until his pulmonary status improves. He will continue on 81 mg of aspirin for now and we are awaiting for echocardiogram to be done. Job ID: [id number]
--- NOTE | 2019-12-07 12:02 | PRG ---
DATE OF SERVICE: 12/07/2019 SUBJECTIVE: This morning, he is better. Less short of breath. OBJECTIVE: VITAL SIGNS: Temperature 97, respiratory rate 20, saturations are 100% , blood pressure is 120/80. CHEST: Decreased breath sounds. No wheezing. CARDIAC: Normal S1, S2. No gallops. ABDOMEN: No masses. LABORATORY DATA: Lytes are normal. Bicarb is 31. White count 8000. ASSESSMENT: 1. Chronic obstructive pulmonary disease. 2. Respiratory failure. 3. Severe deconditioning. PLAN: 1. Consider switching over to oral antibiotics. 2. PT, supportive care. 3. We will follow. Job ID: [id number]
--- NOTE | 2019-12-07 16:00 | PDOC.CPN ---
- Subjective Date: 12/07/19 Time: 15:59 Interval history: No new issues. - Review of Systems General: denies: fever/chills, weight/appetite/sleep changes, night sweats, fatigue Respiratory: reports: shortness of breath. denies: cough, congestion, exercise intolerance Cardiovascular: denies: chest pain, palpitation, edema, paroxysmal nocturnal dyspnea, orthopnea Gastrointestinal: denies: nausea, vomiting, diarrhea, constipation, abd pain, GI bleeding Musculoskeletal: denies: pain, tenderness, stiffness, swelling, arthritis/ arthralgias Neurological: denies: numbness, syncope, seizure, weakness - Objective Allergies/Adverse Reactions: Allergies Allergy/AdvReac Type Severity Reaction Status Date / Time No Known Drug Allergies Allergy Verified 12/01/19 11:22 Visit Medications: Current Medications Acetaminophen (Tylenol) 500 mg PO Q6H PRN PRN Reason: Pain Albuterol Sulfate (Ventolin) 2.5 mg NEB Q2H PRN PRN Reason: SOB &/or Wheezing Albuterol/Ipratropium (Duoneb) 3 ml NEB Q4H PRN PRN Reason: SOB &/or Wheezing Last Admin: 12/03/19 06:54 Dose: 3 ml Albuterol/Ipratropium (Duoneb) 3 ml EZPAP [id number] [facility] Last Admin: 12/07/19 13:39 Dose: 3 ml Aspirin (Ecotrin) 81 mg PO DAILY [facility] Last Admin: 12/07/19 09:41 Dose: 81 mg Famotidine (Pepcid) 20 mg PO BID [facility] Last Admin: 12/07/19 09:41 Dose: 20 mg Guaifenesin (Mucinex) 600 mg PO Q12HR [facility] Last Admin: 12/07/19 09:41 Dose: 600 mg Azithromycin 500 mg/ Sodium (Chloride) 250 mls @ 250 mls/hr IVPB Q24HR [facility] Last Admin: 12/07/19 05:14 Dose: 250 mls Ceftriaxone Sodium 1 gm/ (Sodium Chloride) 100 mls @ 200 mls/hr IVPB Q24HR [facility] Last Admin: 12/07/19 05:14 Dose: 100 mls Sodium Chloride (1/2 Normal Saline) 1,000 mls @ 0 mls/hr IV .Q0M [facility] Last Admin: 12/07/19 05:13 Dose: 1,000 mls Ipratropium [place] (Atrovent) 2.5 ml NEB Q2H PRN PRN Reason: SOB &/or Wheezing Nitroglycerin (Nitrostat) 0.4 mg SL Q5MIN PRN PRN Reason: Chest Pain Phenylephrine HCl (Filipe-Synephrine 0.5% Nasal [place]) 1 ml EA NARE DAILY [facility] Stop: 12/08/19 09:01 Last Admin: 12/07/19 09:42 Dose: 1 spr Prednisone (Prednisone) 40 mg PO DAILY [facility] Stop: 12/08/19 09:01 Last Admin: 12/07/19 09:41 Dose: 40 mg Sodium Chloride (Flush - Normal Saline) 10 ml IVF Q12HR [facility] Last Admin: 12/07/19 09:39 Dose: 10 ml Sodium Chloride (Flush - Normal Saline) 10 ml IVF PRN PRN PRN Reason: Saline Flush Warfarin Sodium (Coumadin) 10 mg PO [id number]@1700 [facility] Last Admin: 12/06/19 17:36 Dose: 10 mg Vital Signs & Weight: Vital Signs Temp Pulse Resp Pulse Ox 12/07/19 15:32 98.2 F 12/07/19 13:39 96 20 97 12/07/19 11:14 98.3 F 12/07/19 07:26 97.8 F 12/07/19 06:33 99 20 100 12/07/19 04:36 98.9 F Admit Weight 211 lb 6.773 oz Weight 202 lb - Physical Exam General: alert & oriented x3 HEENT: mucus membranes moist Neck: supple neck Cardiac: regular rate and rhythm Lungs: decreased breath sounds Neuro: grossly intact Abdomen: active bowel sounds Extremities: no edema Skin: clear Musculoskeletal: no pain - Labs Result Diagrams: 12/07/19 03:30 12/07/19 03:30 Troponin/CKMB Troponin I 0.014 ng/mL (< 0.028) 12/07/19 03:30 - Telemetry Sinus rhythms and dysrhythmias: sinus rhythm - Assessment/Plan Assessment/Plan: 1. COPD exacerbation. 2. Normal Echo 3. Normal troponins. PLAN: - Will sing off. Please call w3ith any questions
[2019-12-07] MEDS: Warfarin Sodium 10 MG TAB PO SCH (18:26)
[2019-12-08] MEDS: cefTRIAXone\\ROCEPHIN 1 GM in Sodium Chloride 0.9% 100 ML IVPB SCH (05:11)
[2019-12-08 05:24] LABS: #Basophils 0.1 thou/uL (0.0-0.2); #Monocytes 0.8 thou/uL (0.11-0.59); #Neutrophils 6.9 thou/uL (1.40-6.50); %Basophils 0.8 % (0.0-1.0); %Eosinophils 0.2 % (0.0-10.0); %Lymphocytes 11.6 % (21.0-51.0); %Neutrophils 78.4 % (42.0-75.0); Hemoglobin 12.3 g/dL (14.0-18.0); Mean Corpuscular HGB CONC 32.6 g/dL (32.0-36.0); Mean Corpuscular Hemoglobin 33.2 pg (27.0-31.0); Mean Platelet Volume 10.6 fL (7.4-10.4); Platelet Count 85 thou/uL (130-400); RBC Distribution Width 13.6 % (11.5-14.5); Red Blood Cell (RBC) Count 3.72 mill/uL (4.70-6.10); White Blood Cell (WBC) Count 8.8 thou/uL (4.8-10.8)
[2019-12-08 05:30] LABS: INR-International Normal Ratio 1.9; Prothrombin Time 21.9 SEC (12.0-14.7)
[2019-12-08 05:43] LABS: BUN (Urea Nitrogen) 24 mg/dL (8.4-25.7); Calc. Creatinine Clearance 86 mL/min (70-130); Calcium 8.2 mg/dL (7.8-10.44); Estimated GFR-MDRD 78; Glucose 161 mg/dL (83-110)
[2019-12-08 05:52] LABS: Anion Gap 11 mmol/L (10-20); Carbon Dioxide 36 mmol/L (23-31); Chloride 101 mmol/L (98-107); Potassium 3.6 mmol/L (3.5-5.1); Sodium 144 mmol/L (136-145)
[2019-12-08] MEDS: Azithromycin 500 MG in Sodium Chloride 0.9% 250 ML 250 ML IVPB SCH (06:08)
[2019-12-08] MEDS: Aspirin 81 mg Enteric Coated Tablet PO SCH (08:06)
[2019-12-08] MEDS: predniSONE 20 MG TAB PO SCH (08:07)
[2019-12-08] MEDS: guaiFENesin ER 600 MG TAB PO SCH ×2 (08:07→20:57)
[2019-12-08] MEDS: Famotidine 20 MG TAB PO SCH ×2 (08:16→20:57)
--- NOTE | 2019-12-08 11:01 | PRG ---
DATE OF SERVICE: 12/08/2019 SUBJECTIVE: This morning, he is awake, alert, and responsive. He is having issues with his swallowing, but he is much improved. OBJECTIVE: VITAL SIGNS: Saturations 100%, respirations 20, blood pressure 130/80, and respiratory rate 18. CHEST: No wheezing or crackles. CARDIAC: Normal S1, S2. No gallops. LABORATORY DATA: Unremarkable. IMPRESSION: Chronic obstructive pulmonary disease exacerbation, respiratory failure, dysphagia. PLAN: Switch over to oral antibiotics, PT supportive care. Job ID: [id number]
[2019-12-08] MEDS ORDERED: Amlodipine 5 MG TAB PO SCH (12:45)
--- NOTE | 2019-12-08 13:11 | PRG ---
DATE OF SERVICE: 12/08/2019 SUBJECTIVE: The patient is seen and examined at the bedside. He is feeling significantly better. His breathing is improved. OBJECTIVE: VITAL SIGNS: Blood pressure is 172/92, heart rate is 108, respiratory rate is 24, and O2 saturation is 100% on 3 L by nasal cannula. His temperature is 98.7. HEENT: Eyes are PERRLA. Sclerae are nonicteric. Oral mucosa is moist. NECK: Supple. LUNGS: Bilateral rales present, but significantly improved than what it was yesterday. Few wheezes bilaterally present, but again improved significantly. ABDOMEN: Soft, nontender, and nondistended. EXTREMITIES: No clubbing, cyanosis or edema. NEUROLOGICAL: He is alert and oriented x4. There is no any motor or sensory deficits. SKIN: No rash or erythema. LABORATORY DATA: White count 8.8, hemoglobin 12.3, hematocrit 37.9, and platelet count 85,000. INR 1.9 and PTT 29.9. Normal electrolytes. CO2 of 36, BUN 24, and creatinine 0.94. Glycemia is ranging from 92 to 161. Calcium 8.2. IMPRESSION: 1. Acute respiratory failure with hypercapnia, improved. 2. Chronic obstructive pulmonary disease exacerbation, improved. 3. Chest pain, resolved. 4. Hypotension, resolved. 5. Supratherapeutic INR, today 1.9. 6. Acute kidney injury, improved. 7. History of deep venous thrombosis. 8. Left forearm pain during antibiotic infusion. PLAN: Plan to switch to oral antibiotics. Continue Coumadin 10 mg once a day. Continue PT/OT, and Dr. Nava is planning to re-evaluate him for possible cardiac evaluation in the future. Job ID: [id number]
--- NOTE | 2019-12-08 16:14 | PDOC.CPN ---
- Subjective Date: 12/08/19 Time: 16:12 Interval history: Patient had questions about next step. He is doing well. No more episodes of chest pain. Breathing much better. - Review of Systems General: denies: fever/chills, weight/appetite/sleep changes, night sweats, fatigue Respiratory: reports: shortness of breath, exercise intolerance. denies: cough , congestion Cardiovascular: denies: chest pain, palpitation, edema, paroxysmal nocturnal dyspnea, orthopnea Gastrointestinal: denies: nausea, vomiting, diarrhea, constipation, abd pain, GI bleeding Musculoskeletal: denies: pain, tenderness, stiffness, swelling, arthritis/ arthralgias Neurological: denies: numbness, syncope, seizure, weakness - Objective Allergies/Adverse Reactions: Allergies Allergy/AdvReac Type Severity Reaction Status Date / Time No Known Drug Allergies Allergy Verified 12/01/19 11:22 Visit Medications: Current Medications Acetaminophen (Tylenol) 500 mg PO Q6H PRN PRN Reason: Pain Albuterol Sulfate (Ventolin) 2.5 mg NEB Q2H PRN PRN Reason: SOB &/or Wheezing Albuterol/Ipratropium (Duoneb) 3 ml NEB Q4H PRN PRN Reason: SOB &/or Wheezing Last Admin: 12/03/19 06:54 Dose: 3 ml Albuterol/Ipratropium (Duoneb) 3 ml EZPAP [id number] [facility] Last Admin: 12/08/19 13:19 Dose: 3 ml Amlodipine Besylate (Norvasc) 5 mg PO DAILY [facility] Amoxicillin/Clavulanate Potassium (Augmentin) 875 mg PO Q12HR [facility] Aspirin (Ecotrin) 81 mg PO DAILY [facility] Last Admin: 12/08/19 08:06 Dose: 81 mg Famotidine (Pepcid) 20 mg PO BID [facility] Last Admin: 12/08/19 08:16 Dose: Not Given Guaifenesin (Mucinex) 600 mg PO Q12HR [facility] Last Admin: 12/08/19 08:07 Dose: 600 mg Sodium Chloride (1/2 Normal Saline) 1,000 mls @ 0 mls/hr IV .Q0M [facility] Last Admin: 12/07/19 05:13 Dose: 1,000 mls Ipratropium [place] (Atrovent) 2.5 ml NEB Q2H PRN PRN Reason: SOB &/or Wheezing Nitroglycerin (Nitrostat) 0.4 mg SL Q5MIN PRN PRN Reason: Chest Pain Sodium Chloride (Flush - Normal Saline) 10 ml IVF Q12HR [facility] Last Admin: 12/08/19 09:05 Dose: Not Given Sodium Chloride (Flush - Normal Saline) 10 ml IVF PRN PRN PRN Reason: Saline Flush Warfarin Sodium (Coumadin) 10 mg PO Saurav@1700 [facility] Last Admin: 12/07/19 18:26 Dose: 10 mg Vital Signs & Weight: Vital Signs Temp Pulse Pulse Pulse Resp BP BP 12/08/19 15:30 97.8 F 12/08/19 13:19 104 H 17 12/08/19 11:12 98.7 F 12/08/19 09:00 106 H 98 172/92 H 124/103 H 12/08/19 08:00 12/08/19 07:13 97.8 F 12/08/19 06:23 107 H 19 Pulse Ox 12/08/19 15:30 12/08/19 13:19 97 12/08/19 11:12 12/08/19 09:00 12/08/19 08:00 100 12/08/19 07:13 12/08/19 06:23 100 Admit Weight 211 lb 6.773 oz Weight 203 lb 8 oz - Physical Exam General: alert & oriented x3 HEENT: mucus membranes moist Neck: supple neck Cardiac: regular rate and rhythm Lungs: decreased breath sounds Neuro: grossly intact Abdomen: active bowel sounds Extremities: no edema Skin: clear Musculoskeletal: no pain - Labs Result Diagrams: 12/08/19 05:07 12/08/19 05:07 Troponin/CKMB Troponin I 0.014 ng/mL (< 0.028) 12/07/19 03:30 - Telemetry Sinus rhythms and dysrhythmias: sinus tachycardia - Assessment/Plan Assessment/Plan: 1. COPD exacerbation. 2. Normal Echo 3. Normal troponins. 4. Chest pain. PLAN: - Will plan on follow up in the ooffice in 6 weeks. - Will have to do further risk stratification as an outpatient. - I gave Mr. Garcia my card and he stated he would call my office tomorrow to make a 6 wk appt. - Will sing off. Please call with any questions
[2019-12-08] MEDS: Amoxicillin/Potassium Clav 875 MG TAB PO SCH (20:57)
[2019-12-09 03:40] LABS: INR-International Normal Ratio 2.5; Prothrombin Time 26.7 SEC (12.0-14.7)
[2019-12-09 03:54] LABS: Band 1 % (5-11); Hemoglobin 12.3 g/dL (14.0-18.0); Hypochromia SLIGHT = 6-15 cells (100X) (0-5/hpf); Lymphocytes 13 % (21-51); MDiff Complete? YES; Mean Corpuscular HGB CONC 32.5 g/dL (32.0-36.0); Mean Corpuscular Hemoglobin 33.1 pg (27.0-31.0); Mean Platelet Volume 10.3 fL (7.4-10.4); Monocytes 5 % (0-10); Neutrophil 80 % (42-75); Platelet Count 87 thou/uL (130-400); Platelet Morphology Comment Appears Decreased; Promyelocytes 1 % (0-0); RBC Distribution Width 13.7 % (11.5-14.5); White Blood Cell (WBC) Count 9.6 thou/uL (4.8-10.8)
[2019-12-09] MEDS: guaiFENesin ER 600 MG TAB PO SCH (08:45)
[2019-12-09] MEDS: Aspirin 81 mg Enteric Coated Tablet PO SCH ×2 (08:45→10:36)
[2019-12-09] MEDS: Amlodipine 5 MG TAB PO SCH (08:47)
[2019-12-09] MEDS: Amoxicillin/Potassium Clav 875 MG TAB PO SCH ×2 (08:49→20:44)
[2019-12-09] MEDS: Famotidine 20 MG TAB PO SCH ×2 (08:54→20:45)
[2019-12-09] MEDS ORDERED: Azithromycin 250 MG TAB PO SCH (09:00)
--- NOTE | 2019-12-09 10:27 | PDOC.HOSPP ---
- Subjective Encounter Date: 12/09/19 Encounter Time: 10:25 Subjective: Mr. Garcia was seen today in follow-up of COPD exacerbation and chest pain. He is feeling better today. He still has a productive cough, of clear sputum. He was able to walk some, but admits to feeling weak. - Objective Vital Signs & Weight: Vital Signs (12 hours) Temp Pulse Resp BP Pulse Ox 12/09/19 08:47 109 H 136/111 H 12/09/19 08:00 100 12/09/19 07:11 102 H 20 92 L 12/09/19 07:09 98.2 F 12/09/19 03:30 97.9 F 12/08/19 23:49 98 20 99 12/08/19 23:23 98.8 F Weight Admit Weight 211 lb 6.773 oz Weight 199 lb 4 oz Most Recent Monitor Data Heart Rate from ECG 100 NIBP 142/78 NIBP BP-Mean 99 Respiration from ECG 23 SpO2 100 I&O: 12/08/19 12/09/19 12/10/19 06:59 06:59 06:59 Intake Total 1060 Output Total 850 Balance 210 Result Diagrams: 12/09/19 03:25 12/08/19 05:07 Hospitalist ROS - Medication Medications: Active Medications Generic Name Dose Route Start Last Admin Trade Name Freq PRN Reason Stop Dose Admin Albuterol/Ipratropium 3 ml 12/01/19 02:51 12/03/19 06:54 Duoneb NEB 3 ml Q4H PRN Administration SOB &/or Wheezing Albuterol/Ipratropium 3 ml 12/06/19 19:00 12/09/19 07:11 Duoneb EZPAP 3 ml [id number] EDDIE Administration Amlodipine Besylate 5 mg 12/09/19 09:00 12/09/19 08:47 Norvasc PO 5 mg DAILY EDDIE Administration Amoxicillin/Clavulanate Potassium 875 mg 12/08/19 21:00 12/09/19 08:49 Augmentin PO 875 mg Q12HR EDDIE Administration Aspirin 81 mg 12/06/19 09:00 12/08/19 08:06 Ecotrin PO 81 mg DAILY EDDIE Administration Famotidine 20 mg 12/03/19 21:00 12/09/19 08:54 Pepcid PO Not Given BID EDDIE Guaifenesin 600 mg 12/01/19 21:00 12/09/19 08:45 Mucinex PO 600 mg Q12HR EDDIE Administration Sodium Chloride 1,000 mls @ 0 mls/hr 12/03/19 18:41 12/07/19 05:13 1/2 Normal Saline IV 1,000 mls .Q0M EDDIE Administration KVO Sodium Chloride 10 ml 12/01/19 09:00 12/09/19 08:52 Flush - Normal Saline IVF 10 ml Q12HR EDDIE Administration Warfarin Sodium 10 mg 12/06/19 17:00 12/07/19 18:26 Coumadin PO 10 mg MoTuThFrSa@1700 EDDIE Administration - Exam Eye: PERRL, anicteric sclera Heart: RRR, no murmur, no gallops, no rubs, normal peripheral pulses Respiratory: CTAB (+ wheezing at the bases, no rales) Gastrointestinal: soft, non-tender, non-distended, normal bowel sounds, no palpable masses, no hepatomegaly, no splenomegaly Extremities: no cyanosis, 1+ LE edema Hosp A/P (1) Muscular deconditioning Code(s): R29.898 - [facility] SYMPTOMS AND SIGNS INVOLVING THE MUSCULOSKELETAL SYSTEM Status: Acute (2) Chronic 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
[2019-12-09] MEDS ORDERED: Activase 2 MG VIAL CATH SCH (11:39)
[2019-12-09] MEDS ORDERED: Sterile Water 10 ML VIAL IVP SCH (11:39)
[2019-12-09] MEDS ORDERED: Furosemide 20 MG/2 ML VIAL SLOW IVP SCH (17:00)
[2019-12-09 17:03] LABS: Anion Gap 13 mmol/L (10-20); BUN (Urea Nitrogen) 23 mg/dL (8.4-25.7); Calc. Creatinine Clearance 83 mL/min (70-130); Calcium 8.2 mg/dL (7.8-10.44); Carbon Dioxide 33 mmol/L (23-31); Chloride 101 mmol/L (98-107); Estimated GFR-MDRD 77; Glucose 118 mg/dL (83-110); Potassium 3.9 mmol/L (3.5-5.1); Sodium 143 mmol/L (136-145)
--- NOTE | 2019-12-09 17:03 | PRG ---
DATE OF SERVICE: 12/09/2019 SERVICE: Pulmonary Medicine. INTERVAL HISTORY: The patient is doing really quite well from respiratory standpoint. He is breathing comfortably. He has not used his BiPAP since Monday evening. He denies any chest discomfort, nausea, vomiting, fevers, or chills. Otherwise, there has been no interval change to his condition. PHYSICAL EXAMINATION: VITAL SIGNS: Afebrile, pulse 109, blood pressure 129/83, respirations 21, saturation 100%, currently on 3 L nasal cannula. GENERAL: The patient is awake and alert, in no apparent distress. LUNGS: Much improved air entry. There is a prolonged expiratory phase with wheezing and rhonchi both present, but he is moving enough air to hear these things. HEART: Normal rate, regular. ABDOMEN: Soft, nontender, nondistended. Bowel sounds are positive. MUSCULOSKELETAL: No cyanosis or clubbing. There is trace pitting in bilateral lower extremities. NEUROLOGIC: Grossly nonfocal. LABORATORY DATA: WBC 9.6, hemoglobin 12.3, platelets 87,000 and stable. INR 2.5. PH 7.33, pCO2 of 59, PO2 of 68. Basic metabolic profile was otherwise unremarkable. IMAGING: Echocardiogram demonstrates normal ejection fraction with 1/3 diastolic dysfunction. ASSESSMENT: 1. Acute on chronic hypoxic and hypercapnic respiratory failure, resolved to baseline. 2. Chronic obstructive pulmonary disease with acute exacerbation. 3. History of deep venous thrombosis, requiring anticoagulation. 4. Chronic diastolic heart failure. DISCUSSION AND PLAN: I will be ordering volume ventilation for nighttime and as needed daytime use. The patient has severe hypercapnic respiratory failure associated with advanced COPD. Traditional home BiPAP will be insufficient due to the severity of the patient's symptoms. Pulmonary/Critical Care will continue to follow along while the patient remains inhouse. I will interrupt his Mucinex, we will involve Physical Therapy. I will give a single dose of Lasix today. Job ID: [id number]
[2019-12-09] MEDS: Warfarin Sodium 10 MG TAB PO SCH (17:09)
[2019-12-10 03:59] LABS: #Eosinphils 0.2 thou/uL (0.0-0.7); #Lymphocytes 1.3 thou/uL (1.20-3.40); #Neutrophils 6.7 thou/uL (1.40-6.50); %Basophils 0.4 % (0.0-1.0); %Eosinophils 1.7 % (0.0-10.0); %Lymphocytes 14.5 % (21.0-51.0); %Monocytes 10.4 % (0.0-10.0); Hemoglobin 12.1 g/dL (14.0-18.0); Mean Corpuscular HGB CONC 31.5 g/dL (32.0-36.0); Mean Corpuscular Hemoglobin 32.1 pg (27.0-31.0); Mean Platelet Volume 10.8 fL (7.4-10.4); Platelet Count 94 thou/uL (130-400); RBC Distribution Width 13.9 % (11.5-14.5); Red Blood Cell (RBC) Count 3.78 mill/uL (4.70-6.10); White Blood Cell (WBC) Count 9.1 thou/uL (4.8-10.8)
[2019-12-10 04:05] LABS: INR-International Normal Ratio 2.5; Prothrombin Time 26.4 SEC (12.0-14.7)
[2019-12-10 04:20] LABS: Anion Gap 8 mmol/L (10-20); BUN (Urea Nitrogen) 19 mg/dL (8.4-25.7); Calc. Creatinine Clearance 91 mL/min (70-130); Calcium 7.9 mg/dL (7.8-10.44); Carbon Dioxide 36 mmol/L (23-31); Chloride 102 mmol/L (98-107); Estimated GFR-MDRD 85; Glucose 90 mg/dL (83-110); Potassium 3.8 mmol/L (3.5-5.1); Sodium 142 mmol/L (136-145)
[2019-12-10] MEDS: Famotidine 20 MG TAB PO SCH ×2 (09:01→20:00)
[2019-12-10] MEDS: Aspirin 81 mg Enteric Coated Tablet PO SCH (09:25)
[2019-12-10] MEDS: Amlodipine 5 MG TAB PO SCH (09:25)
[2019-12-10] MEDS: Amoxicillin/Potassium Clav 875 MG TAB PO SCH (09:25)
--- NOTE | 2019-12-10 09:59 | PDOC.HOSPP ---
- Subjective Encounter Date: 12/10/19 Encounter Time: 09:58 Subjective: Mr. Garcia was seen today in follow-up of COPD exacerbation. He admits he is feeling a bit better, but still doesn't feel ready to go home yet. He does not want to go to [facility]. - Objective Vital Signs & Weight: Vital Signs (12 hours) Temp Pulse Resp Pulse Ox 12/10/19 09:25 113 H 12/10/19 08:03 113 H 20 97 12/10/19 08:00 100 12/10/19 07:27 98.1 F 12/10/19 03:33 99.4 F 12/10/19 00:51 117 H 27 H 99 12/09/19 23:35 98.7 F Weight Admit Weight 211 lb 6.773 oz Weight 200 lb 8 oz Most Recent Monitor Data Heart Rate from ECG 117 NIBP 121/73 NIBP BP-Mean 89 Respiration from ECG 24 SpO2 100 I&O: 12/09/19 12/10/19 12/11/19 06:59 06:59 06:59 Intake Total 1060 2447 Output Total 850 2300 Balance 210 147 Result Diagrams: 12/10/19 03:45 12/10/19 03:45 Hospitalist ROS - Medication Medications: Active Medications Generic Name Dose Route Start Last Admin Trade Name Freq PRN Reason Stop Dose Admin Albuterol/Ipratropium 3 ml 12/01/19 02:51 12/03/19 06:54 Duoneb NEB 3 ml Q4H PRN Administration SOB &/or Wheezing Albuterol/Ipratropium 3 ml 12/06/19 19:00 12/10/19 08:03 Duoneb EZPAP 3 ml [id number] EDDIE Administration Amlodipine Besylate 5 mg 12/09/19 09:00 12/10/19 09:25 Norvasc PO 5 mg DAILY EDDIE Administration Amoxicillin/Clavulanate Potassium 875 mg 12/08/19 21:00 12/10/19 09:25 Augmentin PO 875 mg Q12HR EDDIE Administration Aspirin 81 mg 12/06/19 09:00 12/10/19 09:25 Ecotrin PO 81 mg DAILY EDDIE Administration Famotidine 20 mg 12/03/19 21:00 12/10/19 09:01 Pepcid PO Not Given BID EDDIE Sodium Chloride 10 ml 12/01/19 09:00 12/10/19 09:25 Flush - Normal Saline IVF 10 ml Q12HR [facility] Administration Warfarin Sodium 10 mg 12/06/19 17:00 12/09/19 17:09 Coumadin PO 10 mg Saurav@1700 [facility] Administration - Exam Eye: PERRL, anicteric sclera Heart: RRR, no murmur, no gallops, no rubs, normal peripheral pulses Respiratory: wheezes (+ expiratory wheezing bilaterally, and rhonchi) Gastrointestinal: soft, non-tender, non-distended, normal bowel sounds, no palpable masses, no hepatomegaly Extremities: no cyanosis, 1+ LE edema Hosp A/P (1) Muscular deconditioning Code(s): R29.898 - OTH SYMPTOMS AND SIGNS INVOLVING THE MUSCULOSKELETAL SYSTEM Status: Acute (2) Chronic anticoagulation Code(s): Z79.01 - HEAD OF DATA (CURRENT) USE OF ANTICOAGULANTS Status: Acute (3) COPD exacerbation Code(s): J44.1 - CHRONIC OBSTRUCTIVE PULMONARY DISEASE W (ACUTE) EXACERBATION Status: Acute (4) Hypertension Code(s): I10 - ESSENTIAL (PRIMARY) HYPERTENSION Status: Chronic - Plan * Acute on chronic respiratory failure- slowly improving * He has been transitioned to oral antibiotics * Continue Duonebs * HTN- blood pressure is better today * Chronic anticoagulation- continue to monitor PT/INR ( 2.5 again today) * Deconditioning- continue PT/OT . He has refused snf placement.
--- NOTE | 2019-12-10 13:59 | PRG ---
DATE OF SERVICE: 12/10/2019 INTERVAL HISTORY: The patient is doing really well from respiratory standpoint. He requested BiPAP last night, but did not need it. As such, it was not placed. He actually slept fairly well, and in this morning, he has been able to get up and walk around under his own strength. He denies any current fevers or chills. Otherwise, no overnight events. PHYSICAL EXAMINATION: VITAL SIGNS: Afebrile, pulse 109, blood pressure 119/68, respirations 17, saturation 100%, currently on 3 L nasal cannula. GENERAL: The patient is awake and alert, in no apparent distress. LUNGS: Improved air entry. There are less rhonchi today. A little bit of wheezing is present, particularly on forced exhalation. No crackles are appreciated. HEART: Normal rate and regular. ABDOMEN: Soft, nontender, nondistended. Bowel sounds are positive. MUSCULOSKELETAL: No cyanosis or clubbing. There is 1+ pitting throughout. NEUROLOGIC: Grossly nonfocal. LABORATORY DATA: WBC 9.1, hemoglobin 12.1, platelets 94,000 and gently uptrending. INR 2.5 and stable. Basic metabolic profile is remarkable for a bicarb that is popped up to 36; otherwise, it is negative. Troponin was negative on presentation. ASSESSMENT: 1. [id number] hypoxic and hypercapnic respiratory failure, returned to baseline. 2. Chronic obstructive pulmonary disease with acute exacerbation. 3. History of deep venous thrombosis, requiring anticoagulation. 4. Chronic diastolic heart failure. DISCUSSION AND PLAN: The patient is good for transition out of the IMCU to the medical unit. Pulmonary will continue to follow while the patient remains inhouse. We are working on setting up a home ventilator. Supportive measures will otherwise be continued. If the patient is not ready for discharge in 24 to 48 hours, rehab and/or skilled option should be considered. Job ID: [id number]
[2019-12-10] MEDS: Warfarin Sodium 10 MG TAB PO SCH (17:54)
[2019-12-11] MEDS: Famotidine 20 MG TAB PO SCH ×2 (09:06→20:47)
[2019-12-11] MEDS: Aspirin 81 mg Enteric Coated Tablet PO SCH (09:07)
[2019-12-11] MEDS: Amlodipine 5 MG TAB PO SCH (09:07)
[2019-12-11 10:18] VITALS: BMI 28.5
[2019-12-11 12:25] LABS: INR-International Normal Ratio 3.2; Prothrombin Time 32.2 SEC (12.0-14.7)
--- NOTE | 2019-12-11 16:51 | PDOC.HOSPP ---
- Subjective Encounter Date: 12/11/19 Encounter Time: 16:47 Subjective: Mr. Garcia was seen today in follow-up of respiratory failure. He is feeling better. He was seen ambulating in the room. - Objective Vital Signs & Weight: Vital Signs (12 hours) Temp Pulse Pulse Pulse Pulse Resp BP 12/11/19 12:36 108 H 24 H 12/11/19 09:07 97 116/80 12/11/19 08:34 118 H 104 H 111 H 12/11/19 07:54 98.5 F 97 20 12/11/19 06:47 105 H 18 BP Pulse Ox Pulse Ox Pulse Ox Pulse Ox 12/11/19 12:36 88 L 12/11/19 09:07 12/11/19 08:34 86 L 100 98 12/11/19 07:54 116/80 100 12/11/19 06:47 95 Weight Admit Weight 211 lb 6.773 oz Weight 204 lb 12.8 oz Most Recent Monitor Data Heart Rate from ECG 110 NIBP 121/73 NIBP BP-Mean 89 Respiration from ECG 18 SpO2 100 I&O: 12/10/19 12/11/19 12/12/19 06:59 06:59 06:59 Intake Total 2447 370 480 Output Total 2300 450 400 Balance 147 -80 80 Result Diagrams: 12/10/19 03:45 12/10/19 03:45 Hospitalist ROS - Medication Medications: Active Medications Generic Name Dose Route Start Last Admin Trade Name Freq PRN Reason Stop Dose Admin Albuterol/Ipratropium 3 ml 12/01/19 02:51 12/03/19 06:54 Duoneb NEB 3 ml Q4H PRN Administration SOB &/or Wheezing Albuterol/Ipratropium 3 ml 12/06/19 19:00 12/11/19 12:36 Duoneb EZPAP 3 ml [id number] EDDIE Administration Amlodipine Besylate 5 mg 12/09/19 09:00 12/11/19 09:07 Norvasc PO 5 mg DAILY EDDIE Administration Aspirin 81 mg 12/06/19 09:00 12/11/19 09:07 Ecotrin PO 81 mg DAILY EDDIE Administration Famotidine 20 mg 12/03/19 21:00 12/11/19 09:06 Pepcid PO 20 mg BID EDDIE Administration Sodium Chloride 10 ml 12/01/19 09:00 12/11/19 09:07 Flush - Normal Saline IVF 10 ml Q12HR EDDIE Administration Warfarin Sodium 10 mg 12/06/19 17:00 12/10/19 17:54 Coumadin PO 10 mg MoTuThFrSa@1700 [facility] Administration - Exam Eye: PERRL, anicteric sclera Heart: RRR, no murmur, no gallops, no rubs, normal peripheral pulses Respiratory: CTAB, no wheezes, no rales, normal chest expansion, no tachypnea, normal percussion Gastrointestinal: soft, non-tender, non-distended, normal bowel sounds Extremities: no cyanosis, no edema Hosp A/P (1) Muscular deconditioning Code(s): R29.898 - OTH SYMPTOMS AND SIGNS INVOLVING THE MUSCULOSKELETAL SYSTEM Status: Acute (2) 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 He has refused fdc placement. * Hopefully home tomorrow
[2019-12-12] MEDS: Famotidine 20 MG TAB PO SCH (08:16)
[2019-12-12] MEDS: Amlodipine 5 MG TAB PO SCH (08:17)
[2019-12-12] MEDS: Aspirin 81 mg Enteric Coated Tablet PO SCH (08:17)
--- NOTE | 2019-12-12 13:12 | PRG ---
DATE OF SERVICE: 12/12/2019 SERVICE: Pulmonary Medicine. INTERVAL HISTORY: The patient is doing fine from respiratory standpoint. He refused blood draws this morning. Denies any current chest discomfort, nausea, vomiting, fevers or chills. Otherwise, there has been no interval change to his condition. Yesterday, he did not want to use the [employer], but today is consenting to using the [employer] for his home ventilator. Either way, he was told that he could potentially go home this morning and he is upset he is not home yet. PHYSICAL EXAMINATION: VITAL SIGNS: Afebrile, pulse 109, blood pressure 114/79, respirations 20, and saturation 95% on 2 L nasal cannula. GENERAL: The patient is awake and alert, in no apparent distress. LUNGS: Decreased air entry bilaterally. Rhonchi and crackles are both present. There is some expiratory phasing, particular with forced exhalation. HEART: Normal rate and regular. ABDOMEN: Soft, nontender, and nondistended. Bowel sounds are positive. MUSCULOSKELETAL: No cyanosis or clubbing. There is 2 to 3+ pitting in the bilateral lower extremities. NEUROLOGIC: Grossly nonfocal. ASSESSMENT: 1. Acute on chronic hypoxic and hypercapnic respiratory failure, at baseline. 2. Chronic obstructive pulmonary disease with acute exacerbation. 3. History of deep venous thrombosis, requiring anticoagulation. 4. Acute on chronic diastolic heart failure. DISCUSSION AND PLAN: The patient would benefit from ongoing diuretics in the outpatient setting. Either way, he is ready for discharge today from purely respiratory standpoint. He will need to follow up with Pulmonary/Critical Care in the outpatient setting. At this point, he has no further requirements for inpatient Pulmonary or Critical Care opinion, and I will sign off. Please call with additional questions or concerns through time. Job ID: [id number]
[2019-12-12 15:07] VITALS: BP 134/61; TEMP 97.9
--- NOTE | 2019-12-12 19:34 | EKG ---
Test Reason : C/P Blood Pressure : / mmHG Vent. Rate : 089 BPM Atrial Rate : 089 BPM P-R Int : 138 ms QRS Dur : 072 ms QT Int : 362 ms P-R-T Axes : 074 058 072 degrees QTc Int : 440 ms Normal sinus rhythm Normal ECG No previous ECGs available Confirmed by DR. Kp PRESLEY ([id number]) on 12/12/2019 7:34:11 PM Referred By: BRIGHT Confirmed By:DR. Kp PRESLEY
--- NOTE | 2019-12-13 02:40 | DIS ---
DATE OF ADMISSION: 12/01/2019 DATE OF DISCHARGE: 12/12/2019 DISCHARGE DISPOSITION: Home with home health. DISCHARGE DIAGNOSES: 1. Acute on chronic respiratory failure with hypoxemia due to chronic obstructive pulmonary disease. 2. Severe chronic obstructive pulmonary disease with exacerbation. 3. History of deep venous thrombosis. 4. Glucose intolerance. DISCHARGE MEDICATIONS: Include, 1. Norvasc 5 mg p.o. daily. 2. Warfarin 10 mg daily as directed. 3. Symbicort inhaler. 4. Albuterol nebs. IMAGING DONE DURING THE HOSPITAL STAY: The patient had an echocardiogram, in which, the ejection fraction was estimated at 60% to 65%. There was grade 1/3 diastolic dysfunction and mild concentric left ventricular hypertrophy. CODE STATUS: Full code. ALLERGIES: NO KNOWN DRUG ALLERGIES. HOSPITAL COURSE: Mr. Garcia is a pleasant 79-year-old gentleman, who was admitted to the hospital with acute respiratory failure. The patient has advanced COPD and required intubation. He was admitted to the ICU and Pulmonology was consulted. He was treated with IV steroids, DuoNebs, and empiric antibiotics, and was eventually able to be weaned from the ventilator. He was also evaluated for chest pain. He had an echocardiogram, showing some diastolic dysfunction and the plan would be to have further outpatient cardiology workup once he was clinically more stable. Again, his COPD is fairly advanced and Dr. Charles evaluated the patient for a home ventilator, which was set up prior to his discharge. He was instructed on the use prior to discharge and the patient will be seeing a cooper apprentice in the [place] area, once he is home, this is where he lives, and also, we will get a PT/INR on Monday and follow up with his primary care physician within 1 week and this will be by Monday or Monday of next week and the plan is for him also to see Dr. Nava in the outpatient setting at his [facility]. Job ID: [id number]
== END 2019-12-12 14:10 | disposition home health service (06) | DRG 208 ==
LOC: ERS 02:08 → CCU 03:01 → IMCU/EMU 12-06 21:45 → T4-A 12-10 16:50
PROVIDERS: ADMIT Internal Medicine; ATTEND Internal Medicine
PROC: 5A1945Z Respiratory Ventilation, 24-96 Consecutive Hours (ICD-10-PCS; principal; 2019-12-01)
PROC: 0BH17EZ Insertion of Endotracheal Airway into Trachea, Via Natural or Artificial Opening (ICD-10-PCS; 2019-12-01)
PROC: 06HY33Z Insertion of Infusion Device into Lower Vein, Percutaneous Approach (ICD-10-PCS; 2019-12-01)
PROC: 3E033XZ Introduction of Vasopressor into Peripheral Vein, Percutaneous Approach (ICD-10-PCS; 2019-12-01)
DX: J96.21 Acute and chronic respiratory failure with hypoxia (principal); I50.33 Acute on chronic diastolic (congestive) heart failure; J44.1 Chronic obstructive pulmonary disease with (acute) exacerbation; N17.9 Acute kidney failure, unspecified; I95.9 Hypotension, unspecified; J96.22 Acute and chronic respiratory failure with hypercapnia; R79.1 Abnormal coagulation profile; R13.10 Dysphagia, unspecified; R07.9 Chest pain, unspecified; M79.632 Pain in left forearm; Z86.718 Personal history of other venous thrombosis and embolism; Z90.49 Acquired absence of other specified parts of digestive tract; Z99.81 Dependence on supplemental oxygen; Z87.891 Personal history of nicotine dependence; Z79.51 Long term (current) use of inhaled steroids; Z79.52 Long term (current) use of systemic steroids; Z79.01 Long term (current) use of anticoagulants
CPT/HCPCS: 31500; 36415; 36556; 71045; 80048; 82805; 84484; 85007; 85025; 85027; 85610; 93005; 93010; 93306; 94002; 94003; 94640; 94660; 96365; 96366; 99292; J0456; J0696; J1940; J2060; J2270; J2704; J2920; J2997; J3010; J3490; J7050; J7512; J7620; S0028

== ENCOUNTER 2020-03-10 09:12 | Outpatient (CLI) | payer MEDICARE, OTHER ==
--- NOTE | 2020-03-10 15:06 | MRI ---
MRI OF THE LUMBAR SPINE WITHOUT CONTRAST: 03/10/20 INDICATION: History of severe low back pain with radiation into the right leg. COMPARISON: None. FINDINGS: No retroperitoneal lymphadenopathy or free fluid is demonstrated. There is straightening of the fritz l lumbar lordosis. There are remote superior end plate compression abnormality of L5 and L2. Conus is seen to terminate at approximately L2. At L5-S1, there is a broad based disc bulge, asymmetric to the left. There is mild facet joint degene rative change. There is loss of disc space height. Constellation of findings induces moderate bilater al neural foraminal narrowing, left greater than right. At L4-5, there is a broad based bulge with facet hypertrophy inducing mild right neural foraminal guy rowing. At L3-4, there is a broad based disc bulge with facet hypertrophy inducing mild bilateral neural fora charley narrowing and mild central canal narrowing. At L2-3, there is a broad based bulge with facet hypertrophy inducing mild bilateral neural foraminal narrowing. At L1-2, there is no appreciable central canal or neural foraminal narrowing. At T12-L1, there is no appreciable central canal or neural foraminal narrowing. IMPRESSION: 1. Moderate spondylosis of the lumbar spine with mild central canal narrowing and mild bilateral neural foraminal narrowing at L3-4. 2. Mild right neural foraminal narrowing at L4-5. 3. Moderate bilateral neural foraminal narrowing, left greater than right, at L5-S1. 4. Chronic superior end plate compression abnormalities at L5 and L2. POS: BH
== END 2020-03-10 09:13 | disposition home or self-care (01) ==
LOC: TBSIIMAG 09:12
PROVIDERS: ATTEND Anesthesiology Pain Medicine
DX: M47.26 Other spondylosis with radiculopathy, lumbar region (principal); M48.07 Spinal stenosis, lumbosacral region; M48.061 Spinal stenosis, lumbar region without neurogenic claudication; M53.86 Other specified dorsopathies, lumbar region
CPT/HCPCS: 72148